=== PATIENT | female | born 1950 | race Caucasian/White ===

== ENCOUNTER 2025-07-12 13:41 | Emergency (ER) | payer MEDICAID ==
[~2025-07-12] VITALS: Ht 154.9 cm; Wt 81.8 kg
[2025-07-12 13:46] VITALS: TEMP 98
[2025-07-12 13:59] LABS: PLATELET COUNT (AUTO) 190 K/uL (150-450); RED BLOOD CELL COUNT(AUTO) 4.61 MIL/uL (4.00-5.20); RED CELL DISTRIBUTION WIDTH 13.4 % (11.5-14.5); WHITE BLOOD COUNT (AUTO) 6.5 K/uL (4.5-11.0)
[2025-07-12 14:09] LABS: CALCIUM, TOTAL 8.8 mg/dL (8.8-10.5); CREATININE 0.69 mg/dL (0.60-1.30); GLOMERULAR FILTR. RATE CALC > 60 mL/min (>60); SODIUM SERUM 138 mmol/L (136-145); UREA NITROGEN, BLOOD 14 mg/dL (7-18)
[2025-07-12 14:10] LABS: GLUCOSE,RANDOM 406 mg/dL (70-110)
[2025-07-12] MEDS: INSULIN REGULAR, HUMAN 100 UNITS/ML IVP ONE (14:37)
[2025-07-12] MEDS: SODIUM CHLORIDE 0.9% 1,000 ML IV ONE (14:37)
[2025-07-12] MEDS: POTASSIUM CHLORIDE 20 MEQ ER TABLET PO ONE (14:37)
[2025-07-12 15:58] VITALS: BP 151/62; PULSE 79; RESP 18; O2SAT 99
== END 2025-07-12 16:09 | disposition home or self-care (01) ==
LOC: EMS 13:44
DX: E11.65 Type 2 diabetes mellitus with hyperglycemia (principal); E78.00 Pure hypercholesterolemia, unspecified; I10 Essential (primary) hypertension; M19.90 Unspecified osteoarthritis, unspecified site
CPT/HCPCS: 99283; 96374; 96361; 80048; 82009; 82962; 85025; 36415; J1815; J7030